=== PATIENT | female | born 1975 | race Caucasian/White ===

== ENCOUNTER 2024-01-14 11:49 | Outpatient (CLI) | payer SELFPAY ==
[2024-01-14 12:31] LABS: Basophils Absolute Auto 0.05 K/uL (0.00-0.30); Basophils Percent Auto 0.7 % (0.0-3.0); Eosinophils Absolute Auto 0.05 K/uL (0.00-0.50); Eosinophils Percent Auto 0.7 % (0.0-7.0); Hematocrit 31.1 % (33.0-51.0); Hemoglobin* 8.9 gm/dL (12.0-16.0); Immature Granulocytes Abs Auto 0.01 K/uL (0.00-0.30); Immature Granulocytes Pct Auto 0.1 %; Lymphocytes Absolute Auto 2.68 K/uL (0.90-2.90); Lymphocytes Percent Auto 38.5 % (20-44); Mean Corpuscular HGB Conc 29 gm/dL (32-36); Mean Corpuscular Hemoglobin 21 pg (26-34); Mean Corpuscular Volume 75 fL (80-100); Monocytes Percent Auto 8.6 % (0.0-11.0); Neutrophils Absolute Auto 3.58 K/uL (1.7-7.0); Neutrophils Percent Auto 51.4 % (42.0-72.0); Platelet Count* 472 K/uL (140-440); RDW Coefficient of Variation % 17.3 % (11.5-15.5); Red Blood Count 4.17 m/uL (4.00-5.20); White Blood Count* 6.97 K/uL (4.50-11.00)
[2024-01-14 12:37] LABS: Slide Review Reflex No
[2024-01-14 13:41] LABS: Ferritin* 3.8 ng/mL (6.24-137.0)
[2024-01-14] MEDS: PERFLUTREN LIPID MICROSPHERES 2 ML VIAL IV (14:11)
--- NOTE | 2024-01-14 14:11 | W.PM.STED ---
Stress Test Note Date Date Seen: 01/14/24 Date of test: 01/14/24 Providers Primary care provider: Peggy Morris Stress test physician: Kailash Bautista Stress Test Note Stress test ordered: Stress Echo Indication for test: Cardiac murmur Results discussion: Patient presents for the above test, indications cardiac murmur, she does however have discomfort or feeling her heart racing when she exercises. Test is ordered by outside provider. Her laboratory work today show that she has likely iron deficiency anemia. With a hemoglobin of 8.9. We did indeed news at interpreter and translator, as her primary language is [place]. Informed consent risks benefits and side effects over the test is done, she agrees to this and will walk on the treadmill. Definity is used, to highlight her apex. Pretest EKG shows normal sinus rhythm rate is 75, no acute ST wave changes. Standard Rodriguez protocol is employed over 9 minute. , her maximum heart rate is 167 which is 114 % of the maximum. She did not develop any chest pain shortness of breath or any other subjective complaints, review of the tracing did not show any evidence of any significant issues, there is no dysrhythmias. Impression: Negative electrographic portion of stress echo, subjectively negative. Follow up suggested: Await echo read by Cardiology, clinical correlation with this will be needed, given history, I suspect that the murmur is a flow murmur from her iron deficiency anemia, to further testing is noted, formal echo, is suggested.
[2024-01-14 14:16] VITALS: BP 144/76; PULSE 98; RESP 18
== END 2024-01-14 11:50 | disposition home or self-care (01) ==
PROVIDERS: PCP Nurse Practitioner Family; Visit Provider Nurse Practitioner Family
DX: R01.1 Cardiac murmur, unspecified (principal); D50.9 Iron deficiency anemia, unspecified
CPT/HCPCS: 36415; 82728; 85025; 93016; 93325; 93351; T1013; Q9957